=== PATIENT | male | born 2000 | race African-American/Black ===

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

== ENCOUNTER 2019-01-29 18:04 | Emergency (ER) | payer SELFPAY ==
--- NOTE | 2019-01-29 18:41 | ED Physician Documentation ---
PD HPI CHEST PAIN - Stated complaint Stated Complaint: CHEST PAIN - Chief complaint Chief Complaint: Cardiac - History obtained from History obtained from: Patient - History of Present Illness Timing - onset: Other (For the last month he has had stinging anterior chest wall pain that is worse with deep breathing or movement. It is intermittent. It is not otherwise exertional. He is short of breath today but feels more like that is from asthma than anything else.) Review of Systems Constitutional: denies: Fever, Chills Cardiac: denies: Palpitations, Pedal edema, Calf pain Respiratory: reports: Dyspnea, Cough. denies: Hemoptysis, Wheezing GI: denies: Abdominal Pain PD PAST MEDICAL HISTORY - Past Medical History Respiratory: Asthma HEENT: Other Psych: ADD/ADHD - Past Surgical History Past Surgical History: Yes HEENT: Tonsil/Adenoidectomy - Present Medications Home Medications: Ambulatory Orders Medication Instructions Recorded Confirmed RX: Albuterol 2.5 mg INH Q4H PRN #30 neb 01/29/19 RX: Albuterol Sulf [Ventolin Hfa 1 - 2 puffs INH Q4HR PRN #1 inhaler 01/29/19 Inhaler] - Allergies Allergies/Adverse Reactions: Allergies Allergy/AdvReac Type Severity Reaction Status Date / Time amoxicillin [Amoxicillin] Allergy Unknown Unknown Verified 01/29/19 18:14 - Social History Does the pt smoke?: No Smoking Status: Never smoker Does the pt drink ETOH?: No Does the pt have substance abuse?: No - Immunizations Immunizations are current?: Yes - POLST Patient has POLST: No PD ED PE NORMAL - Vitals Vital signs reviewed: Yes - General General: Alert and oriented X 3, No acute distress - HEENT HEENT: PERRL, EOMI - Neck Neck: Supple, no meningeal sign, No bony TTP - Cardiac Cardiac: RRR, No murmur, Other (Nontender chest wall) - Respiratory Respiratory: No respiratory distress, Clear bilaterally - Abdomen Abdomen: Non tender - Extremities Extremities: No edema, No calf tenderness / cord - Neuro Neuro: Alert and oriented X 3, Normal speech Results - Vitals Vitals: Vital Signs - 24 hr 01/29/19 01/29/19 01/29/19 18:08 18:13 19:47 Temperature 36.5 C 36.5 C Heart Rate 73 73 72 Respiratory 18 18 16 Rate Blood Pressure 144/76 H 144/76 H 140/78 H O2 Saturation 96 96 98 Oxygen O2 Source Room air - EKG (time done) 1818 Rate: Rate (enter#) (94) Rhythm: NSR [place]: Normal Intervals: Normal [place] QRS: Normal Ischemia: ST elevation c/w repol Computer interpretation: Agree with computer - Labs Labs: Laboratory Tests 01/29/19 18:48 Troponin I < 0.04 - Rads (name of study) 2v chest Radiology: EMP read contemporaneously (normal) PD MEDICAL DECISION MAKING - ED course ED course: Heart score 1- Neg PERC Departure - Departure Disposition: Home, Self Care Clinical Impression: Atypical chest pain Condition: Good Record reviewed to determine appropriate education?: Yes Instructions: ED Chest Pain Atypical Unkn Cause Prescriptions: RX: Albuterol Sulf [Ventolin Hfa Inhaler] 1 - 2 puffs INH Q4HR PRN #1 inhaler PRN Reason: Shortness Of Air/Wheezing RX: Albuterol 2.5 mg INH Q4H PRN #30 neb PRN Reason: Wheezing Comments: Call your doctor to arrange a follow-up appointment, make the next available appointment. In the interim, return anytime if worse or if new symptoms develop. Your blood pressure was elevated today on check into the emergency department. This does not mean that you have hypertension, it is a common phenomenon to come to the emergency department and have elevated blood pressure. I recommend that you see your primary care physician within the week to have it rechecked when you are feeling better. Forms: Activity restrictions Discharge Date/Time: 01/29/19 19:47
--- NOTE | 2019-01-29 19:26 | XRAY Report ---
Reason: chest pain Procedure Date: 01/29/2019 Accession Number: [id number] / [id number] Procedure: XR - Chest 2 View X-Ray CPT Code: 77858 FULL RESULT: EXAM: CHEST RADIOGRAPHY EXAM DATE: 01/29/2019 07:14 PM. CLINICAL HISTORY: Chest pain. COMPARISON: CHEST 2 VIEW PA/LAT 08/17/2015 8:00 PM. TECHNIQUE: 2 views. FINDINGS: Lungs/Pleura: No focal opacities evident. No pleural effusion. No pneumothorax. Normal volumes. Mediastinum: Heart and mediastinal contours are unremarkable. Other: No osseous abnormality identified. IMPRESSION: Normal 2-view chest radiography. RADIA
[2019-01-29 19:48] VITALS: BP 140/78
== END 2019-01-29 19:47 | disposition home or self-care (01) ==
LOC: ED 18:04
DX: R07.89 Other chest pain (principal); R03.0 Elevated blood-pressure reading, without diagnosis of hypertension
CPT/HCPCS: 36415; 71046; 84484; 93005; 99283; 99284

== ENCOUNTER 2020-02-02 15:45 | Emergency (ER) | payer MEDICAID ==
--- NOTE | 2020-02-02 18:38 | ED Physician Documentation ---
History of Present Illness - Stated complaint Stated Complaint: COUGH, YELLOW/GREEN MUCUS - Chief complaint Chief Complaint: General - History obtained from History obtained from: Patient (19-year-old male presents today with chief complaints of upper respiratory sinus infection symptoms of started approximately 3 weeks ago, he continues to complain of a productive cough with worsening yellow-green phlegm, sinus nasal congestion on the right side,fatigue dyspnea on exertion. States that he is drinking lots of water but is just not getting better. Patient states that he has been using his albuterol MDI at home with some relief. He states he does get infections like this once a year and has not had one in about 2 years now. 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 Denies fever today but stated he had a fever the first week, denies chills nausea vomiting diarrhea.), Family Review of Systems Constitutional: reports: Reviewed and negative Eyes: reports: Reviewed and negative Ears: reports: Reviewed and negative Nose: reports: Congestion Throat: reports: Sore throat Cardiac: reports: Reviewed and negative Respiratory: reports: Cough, Wheezing PD PAST MEDICAL HISTORY - Past Medical History Past Medical History: Yes Cardiovascular: None Respiratory: Asthma Neuro: None Endocrine/Autoimmune: None GI: None : None HEENT: None, Other Psych: ADD/ADHD Musculoskeletal: None Derm: None - Past Surgical History Past Surgical History: Yes HEENT: Tonsil/Adenoidectomy - Present Medications Home Medications: Ambulatory Orders Medication Instructions Recorded Confirmed Albuterol 2.5 mg INH Q4H PRN #30 neb 01/29/19 Albuterol Sulf [Ventolin Hfa 1 - 2 puffs INH Q4HR PRN #1 inhaler 01/29/19 Inhaler] Doxycycline Hyclate 100 mg PO BID #20 capsule 02/02/20 predniSONE [Deltasone] 10 mg PO [id number] #42 tab 02/02/20 - Allergies Allergies/Adverse Reactions: Allergies Allergy/AdvReac Type Severity Reaction Status Date / Time amoxicillin [Amoxicillin] Allergy Unknown Unknown Verified 02/02/20 15:59 - Social History Does the pt smoke?: No Smoking Status: Never smoker Does the pt drink ETOH?: No Does the pt have substance abuse?: No - Immunizations Immunizations are current?: Yes - POLST Patient has POLST: No PD ED PE NORMAL - General General: Alert and oriented X 3, No acute distress, Well developed/nourished - HEENT HEENT: PERRL, Ears normal, Moist mucous membranes, Pharynx benign - Cardiac Cardiac: RRR, No murmur - Respiratory Respiratory: No respiratory distress PD ED PE EXPANDED - Respiratory Respiratory: Wheezing, Rhonchi. No: Rales Results - Vitals Vitals: Vital Signs - 24 hr 02/02/20 02/02/20 02/02/20 16:00 17:00 19:00 Temperature 36.9 C 37.0 C Heart Rate 88 82 85 Respiratory 18 16 16 Rate Blood Pressure 125/76 162/78 H 152/74 H O2 Saturation 96 99 99 Oxygen O2 Source Room air PD MEDICAL DECISION MAKING - ED course Complexity details: reviewed results, re-evaluated patient, d/w patient, d/w family Departure - Departure Disposition: 01 Home, Self Care Clinical Impression: Bronchitis, Asthma Clinical Impression: (Ruled Out): Asthma Condition: Good Instructions: ED Bronchitis Asthmatic Ch Prescriptions: Doxycycline Hyclate 100 mg PO BID #20 capsule predniSONE [Deltasone] 10 mg PO [id number] #42 tab Comments: continue with his Albuterol MDI at home, along with copious amounts of clear fluids. An Rx for Prednisone tapering dose, and also Doxycycliine to take as directed. You can use Ibuprofen for chest discomfort/pain. Follow-up with your PCP if not showing signs of improvement in the next 3 to 5 days. Discharge Date/Time: 02/02/20 19:01
[2020-02-02 19:01] VITALS: BP 152/74
== END 2020-02-02 19:01 | disposition home or self-care (01) ==
LOC: ED 15:45
DX: J45.909 Unspecified asthma, uncomplicated (principal)
CPT/HCPCS: 99282; 99284

== ENCOUNTER 2020-03-31 13:39 | Emergency (ER) | payer MEDICAID ==
[2020-03-31] MEDS ORDERED: KETOROLAC 30 MG/ML VIAL IVP STA (14:16)
--- NOTE | 2020-03-31 14:19 | ED Physician Documentation ---
History of Present Illness - Stated complaint Stated Complaint: CP - Chief complaint Chief Complaint: General - History obtained from History obtained from: Patient - History of Present Illness Timing: How many days ago (3-4) Pain level max: 7 Pain level now: 4 Quality: sharp/dull Improved by: shallow breathing, rest Worsened by: deep breath, palpation - Additonal information Additional information: 19-year-old male comes in today with chief complaint of left anterior chest pain. He states that he is been remodeling the house for the last month and a half. He is been doing a lot of heavy lifting, auto swinging hammer, and had a lot more physical activity than he normally does. He states that he has tried using his albuterol nebulizer and MDIs at home without any relief. He denies any shortness of breath, diaphoresis, nausea, vomiting, jaw neck pain, arm heaviness or weakness, fevers or chills. He denies any past medical history of cardiac problems. Review of Systems Constitutional: reports: Reviewed and negative Eyes: reports: Reviewed and negative Ears: reports: Reviewed and negative Nose: reports: Reviewed and negative Throat: reports: Reviewed and negative Cardiac: reports: Reviewed and negative Respiratory: denies: Dyspnea, Cough, Hemoptysis, Wheezing GI: reports: Reviewed and negative : reports: Reviewed and negative Skin: reports: Reviewed and negative Musculoskeletal: reports: Other (left lateral sternal boarder pain with deep inspiration.) Neurologic: reports: Reviewed and negative PD PAST MEDICAL HISTORY - Past Medical History Cardiovascular: None Respiratory: Asthma Neuro: None Endocrine/Autoimmune: None GI: None : None HEENT: None, Other Psych: ADD/ADHD Musculoskeletal: None Derm: None - Past Surgical History Past Surgical History: Yes HEENT: Tonsil/Adenoidectomy - Present Medications Home Medications: Ambulatory Orders Medication Instructions Recorded Confirmed Albuterol 2.5 mg INH Q4H PRN #30 neb 01/29/19 Albuterol Sulf [Ventolin Hfa 1 - 2 puffs INH Q4HR PRN #1 inhaler 01/29/19 Inhaler] Doxycycline Hyclate 100 mg PO BID #20 capsule 02/02/20 predniSONE [Deltasone] 10 mg PO [id number] #42 tab 02/02/20 - Allergies Allergies/Adverse Reactions: Allergies Allergy/AdvReac Type Severity Reaction Status Date / Time amoxicillin [Amoxicillin] Allergy Unknown Unknown Verified 02/02/20 15:59 - Social History Does the pt smoke?: No Smoking Status: Never smoker Does the pt drink ETOH?: No Does the pt have substance abuse?: No - Immunizations Immunizations are current?: Yes - POLST Patient has POLST: No PD ED PE NORMAL - General General: Alert and oriented X 3, No acute distress - HEENT HEENT: Atraumatic, PERRL, EOMI, Ears normal, Moist mucous membranes - Neck Neck: Supple, no meningeal sign, No adenopathy - Cardiac Cardiac: RRR, No murmur, No gallop - Respiratory Respiratory: No respiratory distress, Clear bilaterally - Abdomen Abdomen: Normal bowel sounds, Soft, Non tender, Non distended - Neuro Neuro: Alert and oriented X 3, [employer]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 Results - Vitals Vitals: Vital Signs - 24 hr 03/31/20 13:45 Temperature 36.4 C L Heart Rate 87 Respiratory 16 Rate Blood Pressure 142/89 H O2 Saturation 95 Oxygen O2 Source Room air - Rads (name of study) No standard instances Radiology: Final report received (Normal single view chest x-ray), See rad report PD MEDICAL DECISION MAKING - ED course Complexity details: re-evaluated patient, considered differential, d/w patient ED course: I have low suspicion for cardiac etiology of this patient's chest pain. Considering he is been doing excessive remodeling a house for last month and a half, which she is not used to doing. Patient admits that he does not have any shortness of breath diaphoresis dyspnea on exertion neck and jaw pain. Pain is reproducible to left sternal chest border, and is relieved with rest. Treat this patient as if he is got costochondritis. Departure - Departure Disposition: 01 Home, Self Care Clinical Impression: Costochondritis Condition: Good Instructions: ED Chest Pain Costochondritis Comments: Your exam today reveals that you most likely have costochondritis from excessive use of remodeling her house. The fact that is reproducible is reassuring to me. Resting by not doing any heaving lifting, pushing, pulling will help you h eal. You can use anti-inflammatories, ibuprofen 600 mg 800 mg 3 times a day, for the next 5 to 7 days for pain relief. You can also take tylenol, not to exceed 3,000 mg daily, for pain. Drink plenty of clear fluids well taking Ibuprofen. You can use heat a few times a day your chest wall. Follow up with your PCP in 7-10 if your symptoms persist.
[2020-03-31] MEDS ORDERED: DEXAMETHASONE 10 MG/ML VIAL IVP STA (14:21)
--- NOTE | 2020-03-31 14:38 | XRAY Report ---
Reason: chest pain Procedure Date: 03/31/2020 Accession Number: [id number] / [id number] Procedure: XR - Chest 1 View X-Ray CPT Code: 50380 Final Report FULL RESULT: EXAM: CHEST RADIOGRAPHY EXAM DATE: 03/31/2020 02:24 PM. CLINICAL HISTORY: Chest pain. COMPARISON: CHEST 2 VIEW 01/29/2019 7:01 PM. TECHNIQUE: 1 view. FINDINGS: Lungs/Pleura: No focal opacities evident. No pleural effusion. No pneumothorax. Mediastinum: Within exam limitations, the cardiomediastinal contour is normal. Other: None. IMPRESSION: Normal single view chest. RADIA
[2020-03-31 15:19] VITALS: BP 136/97
== END 2020-03-31 15:22 | disposition home or self-care (01) ==
LOC: ED 13:39
DX: M94.0 Chondrocostal junction syndrome [Tietze] (principal)
CPT/HCPCS: 71045; 96374; 96375; 99284

== ENCOUNTER 2020-08-16 08:00 | Outpatient (CLI) | payer MEDICAID | END 2020-08-16 23:59 | disposition home or self-care (01) | LOC: LAB.R 08:00 | PROVIDERS: ATTEND Nurse Practitioner Family | DX: R06.02 Shortness of breath (principal); Z20.828 Contact with and (suspected) exposure to other viral communicable diseases ==

== ENCOUNTER 2021-08-13 13:03 | Emergency (ER) | payer MEDICAID ==
[2021-08-13 13:17] VITALS: BP 202/104
--- NOTE | 2021-08-13 13:45 | XRAY Report ---
PROCEDURE: Chest 2 View X-Ray INDICATIONS: hx of asthma, short of breath for 3 days TECHNIQUE: 2 view(s) of the chest. COMPARISON: 03/31/20, 01/29/19, 08/17/15 FINDINGS: Surgical changes and devices: None. Lungs and pleura: No pleural effusions or pneumothorax. Lungs are clear. Mediastinum: Mediastinal contours are normal. Heart size is normal. Bones and chest wall: No suspicious bony abnormalities. Soft tissues appear unremarkable. IMPRESSION: Normal. Reviewed by: Phi Garcia MD on 08/13/2021 12:44 PM JERICHO Approved by: Phi Garcia MD on 08/13/2021 12:44 PM JERICHO Station ID: [id number]
--- NOTE | 2021-08-13 13:55 | ED Physician Documentation ---
PD HPI DYSPNEA - Stated complaint Stated Complaint: CHEST PX/SOA - Chief complaint Chief Complaint: Resp - History obtained from History obtained from: Patient - History of Present Illness Timing - onset: How many days ago (2-3) Timing - onset during: Light activity Timing - duration: Days (2-3) Timing - details: Gradual onset, Still present Inciting event(s): Exposure (ie smoke) (he is visiting his parents the past few days, so different environment and they have pets.), Other (has had coVID vaccin e.). No: Out of meds, URI Associated symptoms: No: Fever, Cough, Wheezing Similar symptoms before: Diagnosis (asthma exacerbations intermittently, not regular symptoms.) Recently seen: Not recently seen Review of Systems Constitutional: denies: Fever, Chills Nose: denies: Rhinorrhea / runny nose, Congestion Respiratory: reports: Dyspnea, Cough (some sputum production), Wheezing GI: denies: Nausea, Vomiting, Diarrhea Skin: denies: Rash Neurologic: denies: Altered mental status, Headache PD PAST MEDICAL HISTORY - Past Medical History Cardiovascular: None Respiratory: Asthma Neuro: None Endocrine/Autoimmune: None GI: None : None HEENT: None, Other Psych: ADD/ADHD Musculoskeletal: None Derm: None - Past Surgical History Past Surgical History: Yes HEENT: Tonsil/Adenoidectomy - Present Medications Home Medications: Ambulatory Orders Medication Instructions Recorded Confirmed Albuterol 2.5 mg INH Q4H PRN #30 neb 01/29/19 Albuterol Sulf [Ventolin Hfa 1 - 2 puffs INH Q4HR PRN #1 inhaler 01/29/19 Inhaler] Doxycycline Hyclate 100 mg PO BID #20 capsule 02/02/20 predniSONE [Deltasone] 10 mg PO [id number] #42 tab 02/02/20 Albuterol Sulf [Ventolin Hfa 3 - 4 puffs INH Q4HR PRN #1 inhaler 08/13/21 Inhaler] Doxycycline Hyclate 100 mg PO BID 5 Days #10 tab 08/13/21 dexAMETHasone [Decadron] 4 mg PO DAILY #5 tablet 08/13/21 - Allergies Allergies/Adverse Reactions: Allergies Allergy/AdvReac Type Severity Reaction Status Date / Time amoxicillin [Amoxicillin] Allergy Unknown Unknown Verified 08/13/21 13:17 - Social History Does the pt smoke?: No Smoking Status: Never smoker Does the pt drink ETOH?: No Does the pt have substance abuse?: No - Immunizations Immunizations are current?: Yes - POLST Patient has POLST: No PD ED PE NORMAL - Vitals Vital signs reviewed: Yes (HR fast, sats good, BP initially elevated. ) - General General: Alert and oriented X 3, No acute distress, Well developed/nourished - HEENT HEENT: Pharynx benign - Neck Neck: Supple, no meningeal sign, No adenopathy - Cardiac Cardiac: No murmur. No: RRR (regular but tachycardic) - Respiratory Respiratory: No: Clear bilaterally (expiratory wheezes and decreased tidal volume. No coarse sounds. ) - Abdomen Abdomen: Soft, Non tender - Derm Derm: Normal color, Warm and dry - Extremities Extremities: No edema, No calf tenderness / cord - Neuro Neuro: Alert and oriented X 3, No motor deficit, Normal speech Results - Vitals Vitals: Oxygen O2 Source Room air - Rads (name of study) chest xray Radiology: Prelim report reviewed, See rad report (no infiltrates) PD MEDICAL DECISION MAKING - ED course Complexity details: re-evaluated patient (feeling much improved after neb. Given steroids. HR improved on recheck. BP not recorded on recheck. No history of HTN in the past. ), considered differential, d/w patient Departure - Departure Disposition: 01 Home, Self Care Clinical Impression: Dyspnea Qualifiers: Dyspnea type: shortness of breath Qualified Code(s): R06.02 - Shortness of breath Asthma exacerbation Qualifiers: Asthma severity: mild Asthma persistence: intermittent Qualified Code(s): J45.21 - Mild intermittent asthma with (acute) exacerbation Condition: Stable Record reviewed to determine appropriate education?: Yes Follow-Up: YAS BRUNNER, MSN, BANQUET STEWARD [Primary Care Provider] - Prescriptions: Albuterol Sulf [Ventolin Hfa Inhaler] 3 - 4 puffs INH Q4HR PRN #1 inhaler PRN Reason: Shortness Of Air/Wheezing dexAMETHasone [Decadron] 4 mg PO DAILY #5 tablet Doxycycline Hyclate 100 mg PO BID 5 Days #10 tab Comments: Use your albuterol inhaler with the spacer as it does improve the delivery. Use 3 to 4 puffs 4 times a day for the next week and extra times if needed. Decadron steroid anti-inflammatory daily for 5 more days. Cough medicine if needed. DOxycycline antibiotic for 5 days for potential secondary infection. Recheck if not improving well over the next few days and return if worse. I transmitted your prescriptions to [facility] pharmacy in [place]. Discharge Date/Time: 08/13/21 15:03
[2021-08-13] MEDS ORDERED: CHERRY SYRUP 10 ML UDC PO ONE (14:09)
[2021-08-13] MEDS ORDERED: DEXAMETHASONE 10 MG/ML VIAL PO STA (14:09)
[2021-08-13] MEDS ORDERED: ALBUTEROL NEB 2.5 MG/3 ML INH STA (14:09)
[2021-08-13] MEDS ORDERED: DOXYCYCLINE 100 MG TABLET PO STA (14:10)
== END 2021-08-13 15:03 | disposition home or self-care (01) ==
LOC: ED 13:03
DX: J45.21 Mild intermittent asthma with (acute) exacerbation (principal)
CPT/HCPCS: 71046; 94640; 99283; A9270

== ENCOUNTER 2023-03-01 16:08 | Outpatient (CLI) | payer MEDICAID ==
--- NOTE | 2023-03-01 16:56 | SLEEP CARE CONSULTATION ---
Information from patient questionnaire entered by Sondra Bhakta. I have reviewed and concur with the information entered by Sondra Bhakta. This document represents the service I personally performed and the decisions made by me, Sarina Man ARNP. History of Present Illness Service Date and Time: 03/01/2023 1600 Reason for Visit: New patient, sleep apnea on CPAP therapy Chief Complaint: reports: Other (SLEEP CHECK UP) Date of Onset: ALL LIFE Usual bedtime: 10PM-12AM Time it takes to fall asleep: LONG TIME 50MIN-2HRS Snores at night: Yes Observed to quit breathing while asleep: Yes Sleeps alone due to snoring: Yes Number of times waking at night: lately, a lot Reasons for waking at night: reports: Pain Toss, Turn, or Twitch while sleeping: Yes Recalls having dreams: No Usually gets out of bed at: 6-9PM Feels refreshed in the morning: Yes Morning headache: No Sleepy or fatigued during the day: Yes Ever fallen asleep while driving: No Takes day naps: No Dreams during day naps: No Prior sleep studies: Yes Additional HPI information: CYNTHIA CARRASQUILLO was previously diagnosed to have mild, AHI 7.9, obstructive sleep apnea-hypopnea syndrome in 2013 at [facility] and comes in today to establish care for CPAP therapy. He states he normally uses his CPAP machine because he has to for his job as a diesel engine mechanic apprentice. He hurt his back at work and has been on L&I for last 3 months. - Parasomnia Symptoms Ever been unable to move upon waking from sleep: No Walks in sleep: No Talks in sleep: No Ever acted out dreams in sleep: No Ever felt weak in the knees when startled or emotional: No Bothered by creepy, crawly, restless sensations in legs: No Problems with memory or concentration: Yes CPAP Compliance Data - Data Reviewed with Patient Average duration of nightly device use: 4 hours 39 minutes Compliance rate %: 18 (44/180 days used) Current pressure setting (cmH2O): 6-20 (median 8.6, avg 10.5, max 11.5) Average residual AHI: 0.3 Central apnea: 0 Obstructive apnea: 0 Hypopnea: 0.1 Compliance data discussion: He has a Resmed Airsense 10 that he received in 2013. He does not get supplies and has not since he got it. He is using the original equipment he got with his machine. He is using a full face mask. Subjective Missed days of use due to: reports: illness Patient concerns: reports: mask discomfort, air blowing in eyes, mask leak noise, condensation in mask/hose, dry mouth, nose, throat. denies: aerophagia, nasal congestion, epistaxis Observed to snore while using device: No Current pressure setting perceived as: comfortable On therapy, patient: reports: sleeping better, awakening more refreshed, being more awake and alert during the day, more rested overall. denies: drowsiness while driving Initial [place] Sleepiness Scale score: 6 (03/01/23) Past Medical History Past Medical History: reports: Asthma, Other (sciatic pain on left side since injuring lower back about 3 months ago) Social History The patient's occupation is a [employer]. Patient is Single and lives in [place]. Have you smoked in the past 12 months: Yes (he vapes) Years of smokin Quit date: 01/01/23 Alcohol use: Yes Caffeine use: Yes Caffeine amount and frequency: MAYBE 1 DAY FEW TIMES A WEEK Family History Family history of sleep disordered breathing: Yes Family Hx Sleep Apnea: Mother: Snoring, Father: Snoring, Sibling: Snoring, Grandparent: Snoring Allergies and Home Medications Known drug allergies: Yes (AMOXICILLIN) Drug allergies reviewed: Yes Home medication list reviewed: Yes Allergy and home medication list: Allergies amoxicillin [Amoxicillin] Allergy (Unknown, Verified 02/28/23 13:16) Unknown Medications: Albuterol, prn Tylenol Muscle relaxers, does not known names Review of Systems Weight gain over past 5 years: 15 Weight loss over past 5 years: 40 Cardiovascular: reports: high blood pressure (with pain) Gastrointestinal: denies: heartburn Neurological: denies: headaches Psychiatric: denies: anxiety, depression Ear/Nose/Throat: reports: sinus problems, dry mouth/throat, tonsillectomy, wisdom teeth removed Musculoskeletal: reports: back pain Immunologic: reports: itching Physical Exam Vital signs obtained and entered by: SONDRA Joe MA Blood Pressure: 148/98 (LEFT ARM) Cuff size: long Heart Rate: 107 O2 Saturation: 95 Height: 5 ft 7 in Weight: 328 lb 12.8 oz Body Mass Index: 51.5 BMI Classification: Morbidly Obese Neck circumference: 19 Heart: regular rate and rhythm Lungs: clear bilaterally Impression and Plan 1. Obstructive Sleep Apnea-Hypopnea Syndrome, mild, with poor treatment compliance and good apnea control. On CPAP therapy, the patient has better sleep quality and is more rested overall. Patient has not consistently used his CPAP for a long time. His last sleep study was when he was a teenager in 2013. I feel we need to update his sleep study and will order this before we can set him up for supplies. I did fit him to a fullface AirFit F20 mask because so he can use his CPAP. The patients pressure will be changed to autoCPAP 8-12 cmH20 to reflect pressure being used. Patient advised to contact me if pressure change is uncomfortable so that it can be adjusted. Goals for apnea control discussed. I encouraged him to restart using his CPAP nightly except for the night prior to the sleep study. He voiced understanding. We will set him up with a sleep study and follow-up with him after the study is completed. Patient's apnea severity and rationale for treatment to reduce apnea, improve sleep quality and reduce cardiovascular and cerebrovascular events was reviewed. I also reviewed the benefit of consistent device use of CPAP for asthma. * PSG/HST to verify diagnosis and severity * Change auto CPAP pressure to 8-12 cmH2O * Notify me if snoring with mask or feeling that the pressure is too much or too little * Attempt to lose weight * Call this office if any problems using CPAP * Return for follow up after sleep study completed, or sooner if concerns arise Adjust device pressure to (cmH2O): 8-12 Mask provided: Yes Counseling Topics: Weight loss health impact Visit Type: In Office Time Spent with Patient (minutes): 51 Provider Statement: I spent 100% of the Face to Face Visit with the patient with greater than 50% spent counseling the patient and coordination of care.
[2023-03-01 18:09] VITALS: BP 148/98
== END 2023-03-01 16:09 | disposition home or self-care (01) ==
LOC: SC 16:08
PROVIDERS: ATTEND Nurse Practitioner Family
DX: G47.33 Obstructive sleep apnea (adult) (pediatric) (principal); E66.01 Morbid (severe) obesity due to excess calories; Z68.43 Body mass index [BMI] 50.0-59.9, adult; F17.290 Nicotine dependence, other tobacco product, uncomplicated
CPT/HCPCS: 99203; 99212

== ENCOUNTER 2023-10-30 15:06 | Outpatient (CLI) | payer MEDICAID ==
--- NOTE | 2023-10-30 15:02 | SLEEP CARE CONSULTATION ---
Information from patient questionnaire entered by Ursula Bhakta. I have reviewed and concur with the information entered by Ursula Bhakta. This document represents the service I personally performed and the decisions made by , Sarina Man ARNP. History of Present Illness Service Date and Time: 10/30/2023 1420 Previous diagnosis: Mild, Obstructive Sleep Apnea-Hypopnea Syndrome AHI: 7.9 (2013) Reason for follow up: six month (F/U) Equipment type: CPAP (ResMed Airsense 10; s/u 11/2014; need card) Mask style: Full face Mask brand: Resmed (Air Fit F20) Backup mask available: No Prior sleep studies: Yes HPI additional information: CYNTHIA CARRASQUILLO was diagnosed to have mild, AHI 7.9, obstructive sleep apnea- hypopnea syndrome and returns via video appointment today for CPAP therapy six month follow-up. Sleep Study - Results Prior sleep studies: Yes CPAP Compliance Data - Data Reviewed with Patient Average duration of nightly device use: 4 hours 39 minutes Compliance rate %: 18 (44/180 days used) Current pressure setting (cmH2O): 6-20 (median 8.6, avg 10.5, max 11.5) Average residual AHI: 0.3 Average large leak: 21.8 L/min Subjective Missed days of use due to: reports: illness Patient concerns: reports: mask discomfort, mask leak noise, nasal congestion (one nasal passage usually clogged all life), other (hole in tubing). denies: aerophagia, air blowing in eyes, condensation in mask/hose, dry mouth, nose, throat, epistaxis Observed to snore while using device: No Current pressure setting perceived as: too high On therapy, patient: reports: sleeping better, awakening more refreshed, being more awake and alert during the day, more rested overall. denies: drowsiness while driving Initial [place] Sleepiness Scale score: 6 (03/01/23) Current [place] Sleepiness Scale score: 6 (10/30/23) Allergies and Home Medications Known drug allergies: Yes (as listed) Drug allergies reviewed: Yes Home medication list reviewed: Yes (no changes) Allergy and home medication list: Allergies amoxicillin [Amoxicillin] Allergy (Unknown, Verified 03/01/23 16:00) Unknown Review of Systems Review of systems same as previous: Yes (no changes) Physical Exam Vital signs obtained and entered by: URSULA Joe MA Height: 5 ft 7 in (PER PT) Weight: 305 lb (PER PT) Body Mass Index: 47.7 BMI Classification: Morbidly Obese Impression and Plan 1. Obstructive Sleep Apnea-Hypopnea Syndrome, mild, with poor treatment compliance and good apnea control. On CPAP therapy, the patient has better sleep quality and is more rested overall. He is pressures did not get changed after her last visit because we need a SD card to make the change to 8-12 cmH2O. He is to bring in this card to our office so that we make the change probably next week. He last had a sleep study as a teenager almost 10 years ago. I would like to get a new baseline. He has weight fluctuations with losing weight and then gaining some of it back. Patient's apnea severity and rationale for treatment to reduce apnea, improve sleep quality and reduce cardiovascular and cerebrovascular events was reviewed. I also reviewed the benefit of consistent device use of CPAP for asthma. 2. Obesity, unspecified. Currently patients BMI is 47.7. Obesity increases the risk of apnea, CPAP pressure requirements and overall health risks especially cardiovascular and diabetes. Thus patient is advised to lose weight. * Change auto CPAP pressure to 8-12 cmH2O * PSG/HST to verify diagnosis and severity * Notify me if snoring with mask or feeling that the pressure is too much or too little * Attempt to lose weight * Call this office if any problems using CPAP * Return for follow up after sleep study, or sooner if concerns arise Counseling Topics: Spare mask, Weight loss health impact Plan: PSG Visit Type: Telehealth Video Video Type: Hussein Patient Location: Home Location of Provider: Office Patient agrees and consents to this telehealth visit type: Yes Patient agrees to have their insurance billed: Yes Time Spent with Patient (minutes): 23 Provider Statement: I spent 100% of the Telehealth Video Call with the patient with greater than 50% spent counseling the patient and coordination of care.
== END 2023-10-30 15:07 | disposition home or self-care (01) ==
LOC: SC 15:06
PROVIDERS: ATTEND Nurse Practitioner Family
DX: G47.33 Obstructive sleep apnea (adult) (pediatric) (principal); E66.01 Morbid (severe) obesity due to excess calories; Z68.42 Body mass index [BMI] 45.0-49.9, adult